=== PATIENT | male | born 1990 | race Caucasian/White ===

== ENCOUNTER 2022-04-24 17:35 | Inpatient (IN) | payer BC ==
[~2022-04-24] VITALS: Ht 175.3 cm; Wt 124.7 kg
--- NOTE | 2022-04-24 17:40 | NUR ---
Pt brought by self, A&Ox4, pt presents to ER with SOB, pt has Hx of asthma, skin pink and warm, cap refill <3, VSS, respirations even and unlabored, cap refill<3, will cont to monitor.
[2022-04-24] MEDS ORDERED: methylPREDNISolone SOD SUCC/PF 62.5 MG/ML VIAL IVP ONE (18:30)
[2022-04-24] MEDS ORDERED: ALBUTEROL SULFATE 0.083% 2.5 MG/3 ML VIAL.NEB INH ONE ×2 (18:30→19:30)
--- NOTE | 2022-04-24 18:30 | NUR ---
Dr Myers evaluating patient at bedside
--- NOTE | 2022-04-24 18:32 | NUR ---
RT at bedside
[2022-04-24 19:00] VITALS: BP_SYST 160
--- NOTE | 2022-04-24 19:00 | NUR ---
Pt A&Ox4, VSS, respirations even and unlabored, will cont to monitor
[2022-04-24] MEDS ORDERED: DECADRON 4 MG TABLET PO ONE (20:45)
[2022-04-24] MEDS ORDERED: IPRATROPIUM/ALBUTEROL SULFATE 3 ML AMPUL.NEB (DUONEB) ONE (21:46)
--- NOTE | 2022-04-24 21:55 | NUR ---
RT at bedside
--- NOTE | 2022-04-24 22:07 | NUR ---
Pt A&OX4, VSS, respirations even and unlabored
[2022-04-24] MEDS ORDERED: LR 1,000 ML IV ONE (22:30)
--- NOTE | 2022-04-24 22:58 | NUR ---
Report given to Naif VERMA
[2022-04-24] MEDS ORDERED: IPRATROPIUM/ALBUTEROL SULFATE 3 ML AMPUL.NEB (DUONEB) INH ONE (23:30)
[2022-04-24] MEDS ORDERED: ALBMDI INH (23:44)
--- NOTE | 2022-04-25 00:08 | NUR ---
Admit bed requested Patient will be admitted to care of . Admitted to unit. Diagnosis Inpatient (Yes or No) Observation (Yes or No) Orientation concerns or request close to nursing station (Yes or No) Covid Status On vent or bipap Isolation requirements Needs a sitter From Home (Yes or if No enter name of facility) Requires Dialysis (Yes or No) Med Rec Completed (Yes of No) Addendum: 04/25/22 at 0056 by SAMIRATND Admit bed requested Patient will be admitted to care of . Admitted to unit.TELE Diagnosis ASTHMA EXACERBATION Inpatient (Yes Observation (No) Orientation concerns or request close to nursing station ( No) Covid Status NEGITIVE On vent or bipap NO Isolation requirements NO Needs a sitter NO From Home (Yes or if No enter name of facility) HOME Requires Dialysis ( No) Med Rec Completed (Yes )
[2022-04-25 00:18] VITALS: BP_SYST 160
--- NOTE | 2022-04-25 01:00 | NUR ---
Pt has even and unlabored resps with no signs of distress. VSS.
--- NOTE | 2022-04-25 02:16 | NUR ---
Dr. Campuzano approved of telemetry downgrade to med surg downgrade. Will adjust the order.
[2022-04-25] MEDS: methylPREDNISolone SOD SUCC/PF 62.5 MG/ML VIAL IVP SCH ×2 (02:37→05:29)
--- NOTE | 2022-04-25 02:45 | NUR ---
Patient will be admitted to care of Dr. Campuzano. Admitted to med surg unit. Will go to room 129B. Belongings list completed. Complete and up to date summary report printed. SBAR report given to Savannah VERMA at bedside with opportunity for questions.
--- NOTE | 2022-04-25 02:45 | NUR ---
ADMISSION NOTE Received patient from ER via gurney. Patient admitted with diagnosis of ASTHMA EXACERBATION. Patient is awake, alert, oriented X 4. Patient oriented to hospital room, call light, toileting, pain management and safety-teach back done. Patient informed that their room number is 129B. Personal belongings checked and Belongings List documented. Call light within reach.
[2022-04-25 03:01] VITALS: BP_SYST 150
--- NOTE | 2022-04-25 03:30 | NUR ---
ADMISSION NOTES; -Pt arrived from ED dept to room 129-B at 0247 assisting by ER nurse via a gurney. Pt is a/ox4, self ambulatory with steady gaits w/o any difficulty. IV site of left AC #20 patent after flushed w/ NS,no s/s any infiltration noted. Skin intact. All lung sounds exp wheezing noted. Pt denies any chest pain,pain,sob,or any acute distress. VS 97.3, 20, 150/102, 83, l2otp=22% r/a. Discussed plan of care and use call light if experiencing chest pain,pain,sob,or any acute distress, pt verbalized understanding. Pt knows how to use call light for assistance. Call light w/in reach, side rails x2. Pt refused to change into a hosp gown. Loulou-RT is going to give breathing txmt now. Cont to monitor pt.
--- NOTE | 2022-04-25 03:46 | NUR ---
NOTES; BREATHING TXMT GIVEN BY ISELART -Pt just had breathing txmt done.
--- NOTE | 2022-04-25 04:25 | NUR ---
NOTES; ORDER CBC & BMP FOR AM -Notified Dr. Campuzano regarding pt admitted from ED dept w/o any lab order from ED MD. CBC and BMP in the morning per .
--- NOTE | 2022-04-25 05:34 | NUR ---
CONSULTATION PAGED/CALLED Reason for Consultation: ASTHMA Person Who was Notified: ALLAN Consulting Physician: JOSEFINA Cereal Maker Specialty: Ordering Physician: JEAN PIERRE
--- NOTE | 2022-04-25 06:43 | NUR ---
CLOSING NOTES: PATIENT RESTING IN BED. NO S/S OF SOB, CHEST PAIN,PAIN, OR ANY ACUTE DISTRESS NOTED. DENIES ANY DISCOMFORT AT THIS TIME. WILL ENDORSE TO NEXT NURSE TO CONT CARE.
[2022-04-25 07:04] LABS: LYMPHOCYTES # (AUTO) 0.4 K/uL (1.0-5.5); LYMPHOCYTES % (AUTO) 5.2 % (20.5-51.5); MEAN CORPUSCULAR HEMOGLOBIN 28 pg (27-31); MEAN CORPUSCULAR HGB CONC 34 % (32-36); MEAN CORPUSCULAR VOLUME 80 fL (79.0-98.0); MONOCYTES # (AUTO) 0.1 K/uL (0.0-1.0); MONOCYTES % (AUTO) 0.7 % (1.7-9.3); NEUTROPHILS # (AUTO) 7.7 K/uL (1.8-7.7); NEUTROPHILS % (AUTO) 94.1 % (40.0-70.0); PLATELET COUNT (AUTO) 245 K/uL (130-430); RED BLOOD CELL COUNT(AUTO) 4.72 MIL/uL (4.2-6.2); RED CELL DISTRIBUTION WIDTH 14.3 % (9.0-15.0); WHITE BLOOD COUNT (AUTO) 8.2 K/uL (4.8-10.8)
--- NOTE | 2022-04-25 07:20 | NUR ---
OPENING NOTE RECEIVED SBAR FROM NIGHT RN, PATIENT IN BED, RESPIRATIONS EVEN, NON LABORED, BED IN LOW AND LOCKED POSITION, CALL LIGHT WITHIN REACH.
[2022-04-25] MEDS: IPRATROPIUM/ALBUTEROL SULFATE 3 ML AMPUL.NEB (DUONEB) INH SCH ×4 (07:33→20:21)
[2022-04-25 07:43] LABS: CALCIUM 9.1 mg/dL (8.4-11.0); CREATININE 0.95 mg/dL (0.55-1.30); POTASSIUM 4.4 mmol/L (3.5-5.1)
[2022-04-25] MEDS ORDERED: POTASSIUM CHLORIDE 20 MEQ TAB.PRT.SR PO PRN (07:45)
[2022-04-25] MEDS ORDERED: ACETAMINOPHEN 325 MG TABLET PO PRN ×2 (07:45→08:00)
[2022-04-25] MEDS ORDERED: MORPHINE 2 MG/ML INJ. SYRINGE IVP PRN ×2 (07:45)
[2022-04-25] MEDS ORDERED: LORazepam 2 MG/ML VIAL IVP PRN (07:45)
[2022-04-25] MEDS ORDERED: ONDANSETRON HCL 4 MG/2 ML VIAL IVP PRN (07:45)
[2022-04-25] MEDS ORDERED: MAGNESIUM SULFATE 50 ML IV PRN (07:45)
[2022-04-25] MEDS ORDERED: NALOXONE HCL 0.4 MG/ML AMP (NARCAN) IVP PRN ×2 (07:45)
[2022-04-25] MEDS ORDERED: MUPIROCIN 2% TOPICAL OINTMENT 22 GM NS PRN (07:45)
[2022-04-25] MEDS ORDERED: DOCUSATE SODIUM 100 MG CAPSULE PO PRN (07:45)
[2022-04-25] MEDS ORDERED: ZOLPIDEM TARTRATE 5 MG TABLET PO PRN (07:45)
[2022-04-25 08:00] VITALS: BP_SYST 128
[2022-04-25 12:00] VITALS: BP_SYST 141
[2022-04-25] MEDS ORDERED: methylPREDNISolone SOD SUCC/PF 62.5 MG/ML VIAL IVP SCH (12:00)
[2022-04-25 16:00] VITALS: BP_SYST 146
--- NOTE | 2022-04-25 17:09 | NUR ---
MD DR ROCHA BEDSIDE EXAMINING PATIENT
[2022-04-25] MEDS ORDERED: PRED20TA PO (17:42)
== END 2022-04-25 18:00 | disposition home or self-care (01) | DRG 203 ==
LOC: SED 17:35 → STU 23:24 → SMU 04-25 04:56
PROVIDERS: ADMIT Family Medicine; ATTEND Family Medicine
DX: J45.901 Unspecified asthma with (acute) exacerbation (principal); J45.902 Unspecified asthma with status asthmaticus; Z20.822 Contact with and (suspected) exposure to COVID-19; D64.9 Anemia, unspecified; Z79.899 Other long term (current) drug therapy
CPT/HCPCS: 36415; 71045; 80048; 85025; 94640; 96360; 99285; G0378; J2930; J7613; J8540

== ENCOUNTER 2022-12-17 07:44 | Emergency (ER) | payer BC ==
[~2022-12-17] VITALS: Ht 177.8 cm; Wt 117.9 kg
[~2022-12-17 07:44] MED LIST: ALBMDI INH; PRED20TA PO
[2022-12-17 07:49] VITALS: BP_SYST 145
--- NOTE | 2022-12-17 08:00 | NUR ---
ER at bedside examining patient.
[2022-12-17] MEDS ORDERED: IPRATROPIUM/ALBUTEROL SULFATE 3 ML AMPUL.NEB (DUONEB) INH ONE (08:15)
--- NOTE | 2022-12-17 08:15 | NUR ---
PT BIB self. C/O SOB. pt has hx of asthma. 0/10 pain. Pt states fatigue, SOB and chest pressure on inspiration. Pt skin dry and intact. MANUEL. denies NVD.
--- NOTE | 2022-12-17 08:20 | NUR ---
Respiratory therapist at bedside giving treatment pt tolerates well
[2022-12-17] MEDS ORDERED: PRED20TA PO (08:40)
--- NOTE | 2022-12-17 08:54 | NUR ---
Patient given written and verbal discharge instructions and verbalizes understanding. ER MD discussed with patient the results and treatment provided. Patient in stable condition. ID arm band removed. Rx of PREDNISONE given. Patient educated on pain management and to follow up with PMD. Opportunity for questions provided and answered. Medication side effect fact sheet provided.
[2022-12-17 08:55] VITALS: BP_SYST 138
== END 2022-12-17 08:54 | disposition home or self-care (01) ==
LOC: SED 07:44
DX: J45.901 Unspecified asthma with (acute) exacerbation (principal); R06.02 Shortness of breath; R05.9 Cough, unspecified; Z79.899 Other long term (current) drug therapy
CPT/HCPCS: 71045; 94640; 99283